=== PATIENT | male | born 1980 | race Caucasian/White ===

== ENCOUNTER 2020-05-06 13:36 | Emergency (ER) | payer SELFPAY ==
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
[2020-05-06 13:49] VITALS: BP 118/64; PULSE 95; RESP 18; TEMP 36.9; O2SAT 100
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
== END 2020-05-06 14:42 | disposition home or self-care (01) ==
PROVIDERS: Emergency Provider Nurse Practitioner Family; PCP Internal Medicine
DX: S20.219A Contusion of unspecified front wall of thorax, initial encounter (principal); W22.11XA Striking against or struck by driver side automobile airbag, initial encounter; V49.9XXA Car occupant (driver) (passenger) injured in unspecified traffic accident, initial encounter; F17.210 Nicotine dependence, cigarettes, uncomplicated
CPT/HCPCS: 71046; 99203; G0463

== ENCOUNTER 2022-11-14 13:12 | Emergency (ER) | payer SELFPAY ==
--- NOTE | ~2022-11-14 | XR_ITS ---
XR hand LT min 3V DATE: 11/14/2022 13:40 INDICATION: Injury 5 days ago' on color he is TECHNIQUE: 3 views COMPARISON: None FINDINGS: No fracture, dislocation, periosteal reaction or bone destruction, radiopaque soft tissue f oreign body or subcutaneous emphysema is detected. IMPRESSION: Negative Reviewed, dictated and finalized at location A. IMPRESSION: Negative
[2022-11-14 13:20] VITALS: BP 143/88; PULSE 99; RESP 16; TEMP 37.2; O2SAT 100
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
== END 2022-11-14 13:58 | disposition home or self-care (01) ==
PROVIDERS: Emergency Provider Nurse Practitioner Family; PCP Internal Medicine
DX: S60.222A Contusion of left hand, initial encounter (principal); X58.XXXA Exposure to other specified factors, initial encounter; S61.432A Puncture wound without foreign body of left hand, initial encounter; L03.114 Cellulitis of left upper limb; L02.512 Cutaneous abscess of left hand; F17.210 Nicotine dependence, cigarettes, uncomplicated
CPT/HCPCS: 73130; 99213; G0463